=== PATIENT | male | born 1985 | race Caucasian/White ===

== ENCOUNTER 2021-02-16 11:41 | Emergency (ER) | payer MEDICAID ==
[~2021-02-16] VITALS: Ht 167 cm; Wt 95.2 kg
[~2021-02-16 11:41] MED LIST: ALBU17AE23 IH; AMBIEN PO; AMLO10TA82 PO; AMLO1CAP5; ATEN50TA; AZIT-21 PO; BENA20TA72 PO; BUTA1TAB55 PO; CEPH500C PO; CLIN300C3 PO; CODE118S2 PO; DOXY100C2 PO; GUAI120S36 PO; HUM10VIA2 IM; HYDR-2997 PO; HYDR1TAB PO; HYDROCODONE PO; IBP800T PO; LEVE1U SQ; LEVO500T69 PO; LIDO20SO20 PO; LIRA0.6P SQ; LISI1TAB PO; LVB125NB3; METF-380 PO; METO-272 PO; METO25TA PO; NAPR-243 PO; NF-XOP-HFA IH; NOVOLOG SQ; ONDAN4ODT PO; PENI500T PO; PRM25T PO; RANITIDINE PO; RNT150T PO
[2021-02-16] MEDS ORDERED: LORazepam INJ 2 MG/ML (ATIVAN) VIAL IVP ONE (12:00)
[2021-02-16] MEDS ORDERED: ASPIRIN 81 MG CHEW (CHILDREN'S ASA) PO ONE (12:00)
[2021-02-16 12:04] LABS: BASOPHILS % (AUTO) 0 % (0-10); EOSINOPHILS # (AUTO) 0.2 10^3/uL (0.0-0.3); EOSINOPHILS % (AUTO) 2 % (0-10); HEMATOCRIT 43 % (40-54); HEMOGLOBIN 15.5 g/dL (13.3-17.7); LYMPHOCYTES # (AUTO) 3.7 10^3/uL (1.0-4.0); LYMPHOCYTES % (AUTO) 37 % (12-44); MEAN CORPUSCULAR HEMOGLOBIN 32 pg (25-34); MEAN CORPUSCULAR HGB CONC 36 g/dL (32-36); MEAN CORPUSCULAR VOLUME 90 fL (80-99); MEAN PLATELET VOLUME 9.4 fL (9.0-12.2); MONOCYTES # (AUTO) 0.7 10^3/uL (0.0-1.0); MONOCYTES % (AUTO) 7 % (0-12); NEUTROPHILS # (AUTO) 5.4 10^3/uL (1.8-7.8); NEUTROPHILS % (AUTO) 54 % (42-75); PLATELET COUNT 330 10^3/uL (130-400)
[2021-02-16 12:07] LABS: ALBUMIN 4.5 GM/DL (3.2-4.5); POTASSIUM 3.8 MMOL/L (3.6-5.0)
[2021-02-16 12:08] LABS: CALCIUM 9.8 MG/DL (8.5-10.1)
[2021-02-16 12:09] LABS: PROTHROMBIN TIME PATIENT 13.9 SEC (12.2-14.7)
[2021-02-16 12:10] LABS: TOTAL PROTEIN 7.6 GM/DL (6.4-8.2)
[2021-02-16 12:11] LABS: BILIRUBIN,TOTAL 0.5 MG/DL (0.1-1.0)
[2021-02-16 12:13] LABS: CREATININE SERUM 0.82 MG/DL (0.60-1.30)
[2021-02-16 12:16] LABS: MAGNESIUM 1.8 MG/DL (1.6-2.4)
--- NOTE | 2021-02-16 12:21 | ED Chest Pain ---
General Chief Complaint: Chest Pain Stated Complaint: CHEST PAIN Nursing Triage Note: Pt to ED via [facility]. EMS reports pt c/o tickle in chest and heaviness in L arm after walking today. Pt c/o pressure in "the Y area" pointing groin and reports feeling blood pulsing in sides and a chest tickle. Pt reports symptoms began while resting today. Pt very anxious and reports no longer taking anxiety medications. Pt hyperventilating while taking blood pressure. Source: patient Exam Limitations: no limitations NPO since: 8:30AM (NAHID MORENO STUDENT) History of Present Illness Date Seen by Provider: Feb 16, 2021 Time Seen by Provider: 11:45 Initial Comments Pt presents to ED via EMS with complaints malaise, perineal pressure, and tickling sensation in his L armpit through to his L chest. He states that the symptoms began this morning around 9AM and denies prior incidents of similar symptoms. He has vague complaints including: numbness/loss of sensation to his face, R wrist/forearm, pressure sensation in his lower abd/back/perineal area, worry about air not going through his head with breathing. He denies chest pain, N/V. He uses meth and states that he last smoked a few days ago. He has history of HTN, asthma, T2DM for which he takes Lisinopril, Metformin, and Proventil. Timing/Duration: 1-3 hours Severity/Quality: moderate (discomfort) Location: other (perineum, lower abd, L chest) Radiation: no radiation Activities at Onset: none Prior CP/Workup: no prior chest pain Modifying Factors: improves with breathing; worse with lying down; improves with rest Associated Symptoms: No back pain, No diaphoresis, No edema, No fatigue, No fever/chills, No nausea/vomiting; shortness of breath (NAHID MORENO STUDENT) Allergies and Home Medications Allergies Coded Allergies: Buspirone (Unverified Allergy, Intermediate, increased bp, itching, 11/16/09) tramadol (Verified Allergy, Unknown, 04/29/08) Home Medications Insulin Determir 100 U/Ml Insuln.pen, 50 UNITS SQ DAILY, (Reported) Metoprolol Succinate 50 Mg Tab.sr.24h, 25 EACH PO BID, (Reported) Penicillin V Potassium 500 Mg Tablet, 1 TAB PO QID FOR INFECTION Prescribed by: GERARD LIU on 01/29/13 0642 [Novolog] , 15 UNIT SQ AC, (Reported) [Ranitidine] , 150 MG PO PRN, (Reported) Patient Home Medication List Home Medication List Reviewed: Yes (NAHID MORENO) Review of Systems Review of Systems Constitutional: No chills, No fever; malaise EENTM: Blurred Vision (pt states blurry vision for an undetermined amount of time) Respiratory: Denies Cough; Shortness of Air; Denies Wheezing Cardiovascular: Denies Chest Pain, Denies Edema, Denies Irregular Heart Rate, Denies Lightheadedness; Other (describes a tickling sensation in his L armpit/L chest) Gastrointestinal: Denies Abdomen Distended, Denies Abdominal Pain, Denies Constipated, Denies Diarrhea, Denies Nausea, Denies Vomiting Genitourinary: Denies Burning, Denies Drainage, Denies Flank Pain, Denies Hematuria Musculoskeletal: No back pain, No joint pain Skin: No change in color, No change in hair/nails Psychiatric/Neurological: Anxiety; Denies Headache; Numbness (pt reports vague numbness in his face and extremities); Denies Paresthesia (NAHID MORENO) All Other Systems Reviewed Negative Unless Noted: Yes (NAHID MORENO) Past Vtyuxvm-Aopujp-Vjujba Hx Patient Social History Tobacco Use?: Yes Tobacco type used: Cigarettes Use of E-Cig and/or Vaping dev: Yes Substance use?: Yes Substance type: Methamphetamine Additional substance use comme: THREE TO FOUR DAYS AGO Substance frequency: Once in a while Alcohol Use?: Yes Alcohol Frequency: Rarely Pt feels they are or have been: No (NAHID MORENO) Tobacco Use?: Yes Tobacco type used: Cigarettes Smoking Status: Current Everyday Smoker Substance use?: Yes Substance type: Methamphetamine, Marijuana Substance frequency: Several times a month Alcohol Use?: No (MYA ARCINIEGA) Past Medical History Sleep Apnea Gastroesophageal Reflux Diabetes, Insulin dep Anxiety (NAHID MORENO) Physical Exam Vital Signs Vital Signs - First Documented (MYA ARCINIEGA) Vital Signs Capillary Refill : Less Than 3 Seconds (NAHID MORENO) Height, Weight, BMI Height: '" Weight: 330lbs. oz. 149.471617gb; 34.00 BMI Method:Stated General Appearance: No Apparent Distress, Anxious HEENT: PERRL/EOMI, Normal ENT Inspection, Pharynx Normal Neck: Full Range of Motion, Normal Inspection, Non Tender, Supple Respiratory: Chest Non Tender, Lungs Clear, Normal Breath Sounds, Other (pt has episodes of rapid breathing, LTAB) Cardiovascular: Regular Rate, Rhythm, No Edema, No Murmur, Normal Peripheral Pulses Gastrointestinal: Normal Bowel Sounds, Non Tender, Soft Rectal: Deferred Extremity: Normal Capillary Refill, Normal Inspection, Normal Range of Motion, Non Tender, No Pedal Edema Neurologic/Psychiatric: Alert, Oriented x3; No Normal Mood/Affect (anxious), No Motor Weakness; Sensory Deficit (nonspecific numbness/decreased sensation in face/arms/legs) Skin: Normal Color, Warm/Dry Lymphatic: No Adenopathy (NAHID MORENO MED STUDENT) Progress/Results/Core Measures Results/Orders Lab Results Laboratory Tests Test 02/16/21 11:47 02/16/21 13:54 Range/Units White Blood Count 10.0 4.3-11.0 10^3/uL Red Blood Count 4.79 4.30-5.52 10^6/uL Hemoglobin 15.5 13.3-17.7 g/dL Hematocrit 43 40-54 % Mean Corpuscular Volume 90 80-99 fL Mean Corpuscular Hemoglobin 32 25-34 pg Mean Corpuscular Hemoglobin Concent 36 32-36 g/dL Red Cell Distribution Width 12.0 10.0-14.5 % Platelet Count 330 130-400 10^3/uL Mean Platelet Volume 9.4 9.0-12.2 fL Immature Granulocyte % (Auto) 0 % Neutrophils (%) (Auto) 54 42-75 % Lymphocytes (%) (Auto) 37 12-44 % Monocytes (%) (Auto) 7 0-12 % Eosinophils (%) (Auto) 2 0-10 % Basophils (%) (Auto) 0 0-10 % Neutrophils # (Auto) 5.4 1.8-7.8 10^3/uL Lymphocytes # (Auto) 3.7 1.0-4.0 10^3/uL Monocytes # (Auto) 0.7 0.0-1.0 10^3/uL Eosinophils # (Auto) 0.2 0.0-0.3 10^3/uL Basophils # (Auto) 0.0 0.0-0.1 10^3/uL Immature Granulocyte # (Auto) 0.0 0.0-0.1 10^3/uL Prothrombin Time 13.9 12.2-14.7 SEC INR Comment 1.0 0.8-1.4 Activated Partial Thromboplast Time 30 24-35 SEC Urine Color YELLOW Urine Clarity CLEAR Urine pH 7.0 5-9 Urine Specific Dante <=1.005 1.016-1.022 Urine Protein NEGATIVE NEGATIVE Urine Glucose (UA) NEGATIVE NEGATIVE Urine Ketones NEGATIVE NEGATIVE Urine Nitrite NEGATIVE NEGATIVE Urine Bilirubin NEGATIVE NEGATIVE Urine Urobilinogen 0.2 < = 1.0 MG/DL Urine Leukocyte Esterase NEGATIVE NEGATIVE Urine RBC (Auto) NEGATIVE NEGATIVE Urine RBC NONE /HPF Urine WBC NONE /HPF Urine Squamous Epithelial Cells RARE /HPF Urine Crystals NONE /LPF Urine Bacteria NEGATIVE /HPF Urine Casts NONE /LPF Urine Mucus NEGATIVE /LPF Urine Culture Indicated NO Sodium Level 140 135-145 MMOL/L Potassium Level 3.8 3.6-5.0 MMOL/L Chloride Level 108 H 98-107 MMOL/L Carbon Dioxide Level 16 L 21-32 MMOL/L Anion Gap 16 H 5-14 MMOL/L Blood Urea Nitrogen 14 7-18 MG/DL Creatinine 0.82 0.60-1.30 MG/DL Estimat Glomerular Filtration Rate 106 BUN/Creatinine Ratio 17 Glucose Level 107 H 70-105 MG/DL Calcium Level 9.8 8.5-10.1 MG/DL Corrected Calcium 9.4 8.5-10.1 MG/DL Magnesium Level 1.8 1.6-2.4 MG/DL Total Bilirubin 0.5 0.1-1.0 MG/DL Aspartate Amino Transf (AST/SGOT) 16 5-34 U/L Alanine Aminotransferase (ALT/SGPT) 18 0-55 U/L Alkaline Phosphatase 62 40-136 U/L Myoglobin 58.5 10.0-92.0 NG/ML Troponin I < 0.028 < 0.028 <0.028 NG/ML B-Type Natriuretic Peptide 52.0 <100.0 PG/ML Total Protein 7.6 6.4-8.2 GM/DL Albumin 4.5 3.2-4.5 GM/DL Lipase 64 8-78 U/L Urine Opiates Screen NEGATIVE NEGATIVE Urine Oxycodone Screen NEGATIVE NEGATIVE Urine Methadone Screen NEGATIVE NEGATIVE Urine Propoxyphene Screen NEGATIVE NEGATIVE Urine Barbiturates Screen NEGATIVE NEGATIVE Ur Tricyclic Antidepressants Screen NEGATIVE NEGATIVE Urine Phencyclidine Screen NEGATIVE NEGATIVE Urine Amphetamines Screen NEGATIVE NEGATIVE Urine Methamphetamines Screen NEGATIVE NEGATIVE Urine Benzodiazepines Screen NEGATIVE NEGATIVE Urine Cocaine Screen NEGATIVE NEGATIVE Urine Cannabinoids Screen POSITIVE H NEGATIVE Serum Alcohol < 10 <10 MG/DL (MYA ARCINIEGA) My Orders Orders - MYA ARCINIEGA Cbc With Automated Diff (02/16/21 11:56) Magnesium (02/16/21 11:56) Chest 1 View, Ap/Pa Only (02/16/21 11:56) Ekg Tracing (02/16/21 11:56) Comprehensive Metabolic Panel (02/16/21 11:56) Myoglobin Serum (02/16/21 11:56) Protime With Inr (02/16/21 11:56) Partial Thromboplastin Time (02/16/21 11:56) O2 (02/16/21 11:56) Monitor-Rhythm Ecg Trace Only (02/16/21 11:56) Ed Iv/Invasive Line Start (02/16/21 11:56) Lipase (02/16/21 11:56) BNP (02/16/21 11:56) Troponin I (02/16/21 11:56) Aspirin Chewable Tablet (Baby Aspirin Ch (02/16/21 12:00) Lorazepam Injection (Ativan Injection) (02/16/21 12:00) Ua Culture If Indicated (02/16/21 12:41) Drug Screen Stat (Urine) (02/16/21 12:41) Alcohol (02/16/21 12:41) Troponin I (02/16/21 13:42) (MYA ARCINIEGA) Medications Given in ED Current Medications Medications Dose Ordered Sig/Noah Route Start Time Stop Time Status Last Admin Dose Admin Aspirin 324 mg ONCE ONCE PO 02/16/21 12:00 02/16/21 12:01 DC 02/16/21 12:08 324 MG Lorazepam 1 mg ONCE ONCE IVP 02/16/21 12:00 02/16/21 12:01 DC 02/16/21 14:42 1 MG (MYA ARCINIEGA) Vital Signs/I&O 02/16/21 02/16/21 02/16/21 11:41 11:41 15:40 Temp 36.5 36.5 Pulse 60 78 Resp 28 18 B/P (MAP) 166/102 (123) 125/77 (123) Pulse Ox 100 100 O2 Delivery Room Air Room Air Room Air (MYA ARCINIEGA) Blood Pressure Mean: 123 Progress Progress Note : Time: 15:09 Progress Note The patient is never endorsing chest pain just a tickling sensation like somebody lightly brushing her finger along his skin across his chest. Despite this if we can consider this atypical angina he has a heart score of 2 points. We did repeat a delta troponin which was again undetectable. He has been followed up by his primary care team over at [place] Dr. Deutsch and apparently ultrasound was obtained where he was having similar paresthesias in his left groin/leg. Their work-up continues and he says these symptoms are similar to what he was having in his groin. We did address his concern that he was having a heart attack or stroke and patient is okay with the plan to follow-up with primary care at this time. We did give him a dose of Ativan as he was quite anxious on arrival. I attest that I saw this patient alongside the medical student and agree with his documented history, physical exam and review of systems except as otherwise noted. (MYA ARCINIEGA) Diagnostic Imaging Diagonstic Imaging: Xray Plain Films/CT/US/NM/MRI: chest Comments [facility], [place] NAME: HOA BLUNT [facility] REC#: [id number] PT STATUS: REG ER : 1985 PHYSICIAN: MYA ARCINIEGA MD ADMIT DATE: 02/16/21/ER Draft Date of Exam:02/16/21 CHEST 1 VIEW, AP/PA ONLY Portable erect AP chest at 12:20. Indication: Chest pain There is shallow inspiration when compared to the prior exam of 02/14/2013. Allowing for this technical factor the heart is stable in size. There are faint areas of increased density involving each lung base. These findings are suspicious for mild pneumonia/atelectasis. The lung apices are clear. There is no sign of a pleural effusion. The mediastinum is not widened. The osseous structures are intact. Impression: The finding are suspicious for mild bibasilar pneumonia/atelectasis. Clinical followup is recommended. Dictated on workstation # [id number] Dict: 02/16/21 1223 Trans: 02/16/21 1229 CV [id number] Interpreted by: INDIGO HARDING MD Electronically signed by: Reviewed: Reviewed by Me (MYA ARCINIEGA) Departure Impression Primary Impression: Chest anomaly Disposition: HOME, SELF-CARE Condition: Stable Departure-Patient Inst. Decision time for Depature: 14:59 (MYA ARCINIEGA) Referrals: MERRICK GARCIA (PCP/Family) Primary Care Physician Patient Instructions: Chest Pain That Is Not Caused by the Heart (DC) Add. Discharge Instructions: Follow-up with your primary care doctor to continue your outpatient work-up. All discharge instructions reviewed with patient and/or family. Voiced understanding. NAHID MORENO MED STUDENT Feb 16, 2021 12:21 MYA ARCINIEGA Feb 16, 2021 15:12
--- NOTE | 2021-02-16 12:29 | Diagnostic Imaging Report ---
Portable erect AP chest at 12:20. Indication: Chest pain There is shallow inspiration when compared to the prior exam of 02/14/2013. Allowing for this technical factor the heart is stable in size. There are faint areas of increased density involving each lung base. These findings are suspicious for mild pneumonia/atelectasis. The lung apices are clear. There is no sign of a pleural effusion. The mediastinum is not widened. The osseous structures are intact. Impression: The finding are suspicious for mild bibasilar pneumonia/atelectasis. Clinical followup is recommended. Dictated by: Dictated on workstation # [id number]
[2021-02-16 12:51] LABS: BILIRUBIN,URINE NEGATIVE (NEGATIVE); CLARITY,URINE CLEAR; COLOR,URINE YELLOW; GLUCOSE, URINE (UA) NEGATIVE (NEGATIVE); KETONES,URINE NEGATIVE (NEGATIVE); LEUKOCYTE ESTERASE ,URINE NEGATIVE (NEGATIVE); NITRITE,URINE NEGATIVE (NEGATIVE); PROTEIN,URINE NEGATIVE (NEGATIVE)
[2021-02-16 13:09] LABS: BACTERIA,URINE NEGATIVE /HPF; SQUAMOUS EPITHELIAL CELL,UR RARE /HPF
[2021-02-16 13:18] LABS: AMPHETAMINE SCREEN, URINE NEGATIVE (NEGATIVE); BARBITURATE SCREEN URINE NEGATIVE (NEGATIVE); BENZODIAZEPINES SCREEN URINE NEGATIVE (NEGATIVE); CANNABINOID SCREEN, URINE POSITIVE (NEGATIVE); COCAINE SCREEN URINE NEGATIVE (NEGATIVE); METHADONE STAT NEGATIVE (NEGATIVE); METHAMPHETAMINE SCREEN URINE S NEGATIVE (NEGATIVE); OPIATE SCREEN URINE NEGATIVE (NEGATIVE); TRICYCLIC ANTIDEPRESSANTS SCRE NEGATIVE (NEGATIVE)
[2021-02-16 13:19] LABS: OXYCODONE STAT NEGATIVE (NEGATIVE); PROPOXYPHENE STAT NEGATIVE (NEGATIVE)
[2021-02-16 15:40] VITALS: BP 125/77
== END 2021-02-16 15:40 | disposition home or self-care (01) ==
LOC: EDUNIT# 11:41 → ER 11:43
DX: Q67.8 Other congenital deformities of chest (principal); G47.30 Sleep apnea, unspecified; K21.9 Gastro-esophageal reflux disease without esophagitis; E11.9 Type 2 diabetes mellitus without complications; I10 Essential (primary) hypertension; J45.909 Unspecified asthma, uncomplicated; F17.210 Nicotine dependence, cigarettes, uncomplicated; Z79.4 Long term (current) use of insulin; Z79.899 Other long term (current) drug therapy
CPT/HCPCS: 71045; 80053; 80306; 81000; 83690; 83735; 83874; 83880; 84484; 85025; 85610; 85730; 93041; 99284; G0480; 36415; 80320; 93005